=== PATIENT | female | born 1955 | race Caucasian/White ===

== ENCOUNTER → 2018-08-27 09:56 | Outpatient (CLI) | payer MEDICARE, SELFPAY ==
--- NOTE | 2018-08-27 10:04 | RAD_ITS ---
STUDY: X-RAY - PELVIS REASON FOR EXAM: Female, 63 years old. TECHNIQUE: One view of the pelvis was obtained. COMPARISON: None. FINDINGS: There is a non-specific bowel gas pattern. Normal visualized soft tissue structures. There is narrowing with cortical sclerosis and osteophyte formation of the sacroiliac joint consistent with degenerative osteoarthritic changes. Normal visualized bilateral superior and inferior pubic rami. Normal pubic symphysis. Normal ischial tuberosities. Normal visualized right femoral head. Normal right acetabulum. There is mild articular joint space narrowing of the right hip. Normal visualized left femoral head. Normal left acetabulum. There is mild articular joint space narrowing of the left hip. RAD/Pelvis 1 or 2 Views IMPRESSION: Degenerative arthrosis, no demonstrated fracture, or suspicious osseous lesion. However, hip and pelvic fractures in patients of this age can be subtle, if there is strong clinical suspicion of a fracture, recommend further evaluation with cross-sectional imaging Electronically Signed: Valentino Juares MD at 18:13 EDT , Service support ,
[2018-08-27 11:50] LABS: Erythrocyte Sedimentation Rate 41 mm/hr (0-30)
[2018-08-27 11:55] LABS: Absolute Lymphocyte Count 2.12 X10^3/ul (0.83-4.51); Absolute Neutrophil Count 6.9 X10^3/uL (2.0-7.7); Basophil# 0.01 X10^3/uL; Basophil% 0.1 % (0-1); Eosinophil# 0.16 X10^3/uL; Eosinophils% 1.6 % (0-5); Hematocrit 37.2 % (37-47); Hemoglobin 11.1 g/dl (12.0-15.0); Lymphocyte # 2.12 X10^3/ul (4.0); Lymphocyte % 21.3 % (19-41); Mean Corp Hgb Conc 29.8 g/gl (32-36); Mean Corpuscular Hgb 27.7 pg (27.0-32.0); Mean Corpuscular Volume 92.8 fL (81-99); Mean Platelet Vol. 10.4 fl (6.2-12.0); Monocyte# 0.75 X10^3/uL; Monocyte% 7.5 % (0-10); Neutrophil % 69.2 % (47-70); POSITIVE COUNT NO; POSITIVE DIFFERENTIAL NO; Platelet Count 267 K/mm3 (150-450); RBC Distribution Width CV 15.7 % (11.6-14.6); RBC Distribution Width SD 51.2 fl (35.1-43.9); Red Blood Count 4.01 M/mm3 (4.2-5.4)
[2018-08-27 11:56] LABS: POSITIVE MORPHOLOGY NO
[2018-08-27 12:11] LABS: ALB/GLOB Ratio 0.7 RATIO (0.9-2.4); AST(SGOT) 13 U/L (15-37); Alanine Aminotransfer ALT/SGPT 27 U/L (13-56); Albumin, Serum 3.1 g/dL (3.2-5.0); Alkaline Phosphatase 61 U/L (45-117); Anion Gap 11 (5-15); BUN 24 mg/dL (7-18); Calcium,Total 8.8 mg/dL (8.5-10.1); Chloride 108 mmol/L (98-107); Creatinine, Serum 1.09 mg/dL (0.55-1.02); EST Glomerular Filtration Rate 54 mL/min (>60); Est Glom Filt Rate - Afr Amer 65 mL/min (>60); Globulin 4.3 g/dL (2.2-4.2); Glucose 69 mg/dL (74-106); Potassium 3.8 mmol/L (3.5-5.1); Protein, Total 7.4 g/dL (6.4-8.2); Rheumatoid Factor < 10.0 IU/mL (<15); Sodium Level 146 mmol/L (136-145)
[2018-08-28 14:43] LABS: ANTINUCLEAR ANTIBODIES DIRECT Negative (Negative)
[2018-09-02 11:49] LABS: CCP IgG Antibodies 5 units (0-19); HEPATITIS B SURFACE AG Negative (Negative); HLA B27 Positive (.); Hep B Surface Antibodies Non Reactive (.); Hep C Antibodies <0.1 s/co ratio (0.0-0.9)
== END ==
PROVIDERS: Family Provider Family Medicine; PCP Family Medicine; Referring Provider Internal Medicine Rheumatology; Visit Provider Internal Medicine Rheumatology
DX: M06.4 Inflammatory polyarthropathy (principal); M47.897 Other spondylosis, lumbosacral region; K21.9 Gastro-esophageal reflux disease without esophagitis; J44.9 Chronic obstructive pulmonary disease, unspecified; Z79.52 Long term (current) use of systemic steroids
CPT/HCPCS: 36415; 72170; 80053; 81374; 85025; 85652; 86038; 86140; 86200; 86431; 86706; 86803; 87340

== ENCOUNTER → 2019-03-10 11:52 | Outpatient (CLI) | payer MEDICARE, SELFPAY ==
[2019-02-21 09:46] VITALS: BMI 50.6
[2019-03-10 12:34] VITALS: PULSE 107; PULSE 109; PULSE 110; PULSE 111; PULSE 113; PULSE 93; PULSE 95; O2SAT 91; O2SAT 92; O2SAT 93; O2SAT 96
--- NOTE | 2019-03-10 12:36 | CPS ---
Patient wears 3 lpm O2 at home, came in on own portable concentrator at 3 lpm pulse dose. SpO2 88% on room air. Placed patient on 3 lpm O2 pulse dose for entire testing.
--- NOTE | 2019-03-10 12:37 | ECHOD_ITS ---
Reason For Study: Dyspnea/SOB Procedure This was a 2D Doppler, Color Flow transthoracic echocardiogram. The study was technically difficult. Did not use Definity due to increased PAP. Exam performed in department. Left Ventricle Normal LV size. Left ventricular systolic function is normal. The estimated ejection fraction is 60 %. No regional wall motion abnormalities noted. Right Ventricle Normal RV size. Normal systolic function. Atria The left atrium is mildly enlarged. Normal right atrium. Mitral Valve Mitral valve not well visualized. Tricuspid Valve Normal tricuspid valve. Mild to moderate (1-2+) tricuspid valve insufficiency. Pulmonary artery systolic pressure is 60 mmHg. Moderate pulmonary hypertension. Aortic Valve The aortic valve is not well visualized. Peak aortic valve gradient 23 mmHg. Mean aortic valve gradient 12 mmHg. Calculated aortic valve area (continuity equation) is 1.7 cm2. Pulmonic Valve Normal pulmonic valve. Great Vessels Normal aortic root. The pulmonary artery is normal size. Normal inferior vena cava. Pericardium/Pleural No pericardial effusion. MMode/2D Measurements & Calculations LVIDd: 4.0 cm IVSd: 1.2 cm LVOT diam: 2.0 cm LVIDs: 2.8 cm LVPWd: 0.91 cm LVOT area: 3.1 cm2 RVDd: 4.5 cm FS: 29.1 % Ao root diam: 3.1 cm LAV(MOD-bp): 67.7 ml LA A4 area: 21.2 cm2 LAV(MOD-bp) Indexed: 30.9 ml/m2 LAV(MOD-sp2): 80.2 ml LAV(MOD-sp4): 55.1 ml LA dimension(2D): 4.6 cm RA A4 area: 13.7 cm2 Doppler Measurements & Calculations MV E max olvin: 113.6 cm/sec Lat Peak E' Olvin: 8.8 cm/sec Med Peak E' Olvin: 8.8 cm/sec MV A max olvin: 96.6 cm/sec E/E' lat: 12.9 E/E' med: 12.9 MV E/A: 1.2 Ao V2 max: 240.6 cm/sec LV V1 max: 132.5 cm/sec SV(LVOT): 74.6 ml Ao max P.2 mmHg LV V1 max P.0 mmHg Ao V2 mean: 166.7 cm/sec LV V1 mean P.8 mmHg Ao mean P.3 mmHg LV V1 mean: 92.2 cm/sec Ao V2 VTI: 42.0 cm LV V1 VTI: 24.3 cm MAYUR(I,D): 1.8 cm2 MAYUR(V,D): 1.7 cm2 PA V2 max: 140.6 cm/sec TR max olvin: 367.9 cm/sec TR max P.1 mmHg Interpretation Summary Pulmonary artery systolic pressure is 60 mmHg. Moderate pulmonary hypertension. Normal LV size. Left ventricular systolic function is normal. The estimated ejection fraction is 60 %. Mean aortic valve gradient 12 mmHg. Calculated aortic valve area (continuity equation) is 1.7 cm2. Ordering Physician: Favio Del Cid Referring Physician: Cassandra Pollack Performed By: Susana Melton, MOI, RVT
--- NOTE | 2019-03-10 15:20 | PCM.PSN.6M ---
PSN 6 Minute Walk Test - 6 Minute Walk Test 6 Minute Walk Test: 6 Minute Walk Test PSN:6-Minute Walk Test Start: 03/10/19 12:33 Freq: Status: Active Protocol: [id number].[id number] Document 03/10/19 12:34 JEREMIAH (Rec: 03/10/19 12:37 JEREMIAH [id number]) 6 Minute Walk Test Date Performed 03/10/19 Time Performed 12:20 Height 5 ft 2 in Weight: 125.191 kg Weight in Pounds 276.[address]: Favio Del Cid Assistive device used: Walker Pre-test Oxygen Flow Rate (L/min) (L/min) 3 Oxygen Delivery Method Nasal Cannula Pulse Ox (%) 93 Pulse Rate (60-100 beats/min) 95 Dyspnea Mercedes Scale (0-10) 0 Exertion Mercedes Scale (6-20) 6 1st minute Oxygen Flow Rate (L/min) (L/min) 3 Oxygen Delivery Method Nasal Cannula Pulse Ox (%) 92 Pulse Rate (60-100 beats/min) 107 H 2nd minute Oxygen Flow Rate (L/min) (L/min) 3 Oxygen Delivery Method Nasal Cannula Pulse Ox (%) 91 Pulse Rate (60-100 beats/min) 109 H 3rd minute Oxygen Flow Rate (L/min) (L/min) 3 Oxygen Delivery Method Nasal Cannula Pulse Ox (%) 93 Pulse Rate (60-100 beats/min) 109 H 4th minute Oxygen Flow Rate (L/min) (L/min) 3 Oxygen Delivery Method Nasal Cannula Pulse Ox (%) 92 Pulse Rate (60-100 beats/min) 110 H 5th minute Oxygen Flow Rate (L/min) (L/min) 3 Oxygen Delivery Method Nasal Cannula Pulse Ox (%) 92 Pulse Rate (60-100 beats/min) 111 H 6th minute Oxygen Flow Rate (L/min) (L/min) 3 Oxygen Delivery Method Nasal Cannula Pulse Ox (%) 92 Pulse Rate (60-100 beats/min) 113 H Dyspnea Mercedes Scale (0-10) 4 Exertion Mercedes Scale (6-20) 14 Post-test Oxygen Flow Rate (L/min) (L/min) 3 Oxygen Delivery Method Nasal Cannula Pulse Ox (%) 96 Pulse Rate (60-100 beats/min) 93 Full Laps Walked 10 Partial Lap, Number of Tiles Walked 15 Total Distance Walked (ft) 605 03/10/19 12:36 Cardiopulmonary Services by Laura Mcmillan Patient wears 3 lpm O2 at home, came in on own portable concentrator at 3 lpm pulse dose. SpO2 88% on room air. Placed patient on 3 lpm O2 pulse dose for entire testing. Initialized on 03/10/19 12:36 - END OF NOTE - Interpretation Interpretation: The patient was noted to be 88% on room air. The patient was then placed on 3 L pulse dose and saturations improved to 93%. The patient then ambulated 605 feet over the course of 6 minutes with the assistance of a walker and no breaks. These findings are consistent with a respiratory limitation exercise tolerance. - Recommendations Recommendations: 3 L nasal cannula oxygen should be worn at all times.
== END ==
PROVIDERS: Family Provider Family Medicine; PCP Family Medicine; Referring Provider Internal Medicine Critical Care Medicine; Visit Provider Internal Medicine Critical Care Medicine
DX: R09.02 Hypoxemia (principal); G47.33 Obstructive sleep apnea (adult) (pediatric)
CPT/HCPCS: 93306; 94618

== ENCOUNTER → 2019-05-06 | Outpatient (CLI) | payer MEDICARE, SELFPAY ==
[2019-02-21 09:46] VITALS: BMI 50.6
--- NOTE | 2019-05-06 15:33 | PFTCOMP_ITS ---
COMPLETE PULMONARY FUNCTION TEST INTERPRETATION Brief HPI: Patient is a 64 year old female, currently under the care of myself, who presents to [facility] for complete pulmonary function tests secondary to diagnosis of hypoxemia. Respiratory therapist reports good effort and reproducible results. Interpretation: Forced expiration spirometry shows a mild large airways obstructive ventilatory defect with an FEV1 of 88% predicted. There is a significant bronchodilator response in FVC and FEV1 by strict ATS criteria. Spirograms are of good quality and plateau slowly, indicating slowly emptying areas of the lungs. The respiratory flow volume loop shows decreased expiratory flow rates at all lung volumes consistent with airway obstruction. Lung volumes by body plethysmography show a normal total lung capacity at 3.68 L, 82% predicted. All other lung volumes are within normal limits. Diffusion capacity by carbon monoxide is decreased at 50% predicted. The airway resistance is normal. No previous pulmonary function tests were available for review. Impression: Fully reversible mild large airways obstructive ventilatory defect with reduction diffusing capacity out of proportion to obstruction.
== END | disposition home or self-care (01) ==
LOC: PSN 09:23
PROVIDERS: Family Provider Family Medicine; PCP Family Medicine; Referring Provider Internal Medicine Critical Care Medicine; Visit Provider Internal Medicine Critical Care Medicine
DX: R09.02 Hypoxemia (principal)
CPT/HCPCS: 94060; 94726; 94729